=== PATIENT | male | born 1955 | race Caucasian/White ===

== ENCOUNTER → 2021-01-29 | Outpatient (CLI) | payer MEDICARE ==
--- NOTE | 2021-01-29 19:52 | P.STRESS ---
- Stress Test Note Stress Test Results/Findings: Exam Performed: stress echo exercise with con Exam Date: 01/29/21 Reason for Exam: chest pain Height: 5 ft 10 in Weight: 231 kg Protocol: ede Stage: 2 Duration of Exercise: 4 min 11 sec Resting Heart Rate: 75 Resting Blood Pressure: 148/84 Maximum Achieved Heart Rate: 229 Maximum Achieved Blood Pressure: 219/96 85% PMHR: 130 100% PMHR: 153 METS: 5.8 Technologist Comment: Stress Test Results/Findings: Baseline heart rate 75 beats a minute, Baseline blood pressure 148/84 mmHg Baseline twelve-lead EKG shows baseline artifact but no definite ST segment abnormalities Patient exercised on a Ede protocol for only 4 minutes 11 seconds achieving a peak heart rate of 129 beats a minute Hypertensive response to exercise Peak blood pressure 219/96 mmHg No ECG is for ischemia PVCs noted during exercise Baseline 2-D echo showed normal LV systolic function without support wall motion underwent days At peak exercise there was augmentation of overall LV contractility without development of any wall motion abdomen is At recovery. Global LV systolic function remained normal Impression Low average excess capacity PVCs with exercise Hypertensive response to exercise No evidence for ischemia at this low workload level
== END | disposition home or self-care (01) ==
LOC: RADNMMAIN 09:59
PROVIDERS: ATTEND Family Medicine
DX: I49.3 Ventricular premature depolarization (principal)
CPT/HCPCS: C8930; Q9950; 93351